=== PATIENT | male | born 1945 | race Caucasian/White ===

== ENCOUNTER → 2016-09-03 | Outpatient (REF) | payer MEDICARE, OTHER | LOC: M LAB REF 18:26 | PROVIDERS: ATTEND Physician Assistant | DX: J02.9 Acute pharyngitis, unspecified (principal) ==

== ENCOUNTER → 2017-02-16 | Outpatient (REF) | payer MEDICARE, OTHER ==
[~2017-02-16] MED LIST: ASPI1TAB PO; CALCTAB29 PO; DIOV160T6 PO; GLUC1CAP10 PO; MULT1TAB10 PO; PROAAER10 INH; PROT1TAB2 PO; TIOT18INH INH
[2017-02-16 17:43] LABS: INR 0.98
== END ==
LOC: M LAB REF 16:34
PROVIDERS: ATTEND Nurse Practitioner Adult Health
DX: Z01.818 Encounter for other preprocedural examination (principal)

== ENCOUNTER → 2017-03-03 | Day surgery (SDC) | payer MEDICARE, OTHER ==
[~2017-03-03] VITALS: Ht 182.9 cm; Wt 100.7 kg
[~2017-03-03] MED LIST changes: +BUPIVACAINE/EPIN 0.25% 30 ML VIAL As Ordered ONE; +ESMOLOL INJ 100MG/10ML VIAL As Ordered ONE; +GLYCOPYRROLATE INJ 0.2 MG/ML 2 ML VIAL As Ordered ONE; +HYDROmorphone HCL 2 MG/ML 1ML VIAL (J1170) As Ordered ONE; +KETOROLAC 60 MG/2 ML VIAL (J1885) As Ordered ONE; +LIDOCAINE 2% INJ 100 MG/5 ML SDV (FOR ANES.) As Ordered ONE; +LR 1,000 ML IV ONE; +LR 1,000 ML IV SCH; +METOCLOPRAMIDE INJ 10MG/2ML VIAL (J2765) As Ordered ONE; +MIDAZOLAM INJ 2 MG/2 ML VIAL (J2250) As Ordered ONE; +NEOSTIGMINE 1MG/ML 5 ML SYRINGE (J2710) As Ordered ONE; +NORCO, ANEXSIA 5/325MG TABLET (HYDROcodone/ACETAMINOPHEN) PO PRN; +ONDANSETRON 4MG/2ML VIAL (J2405) As Ordered ONE; +ONDANSETRON 4MG/2ML VIAL (J2405) IV PRN; +PHENYLephrine HCL 500 MCG/5 ML (100MCG/ML) SYRINGE (J2370) As Ordered ONE; +PROPOFOL 200 MG/20 ML VIAL As Ordered ONE; +ROCURONIUM BROMIDE 50 MG/5 ML VIAL/SYRINGE As Ordered ONE; +SEVOFLURANE INHAL SOLN 250 ML BTL As Ordered ONE; +ceFAZolin SOD 1 GM in D5W MINI-BAG PLUS 50 ML IV ONE; +dexameTHASONE 4 MG/ML 1ML VIAL (J1100) As Ordered ONE; +ePHEDrine SULFATE 25 MG/5 ML(5MG/ML) SYRINGE As Ordered ONE; +fentaNYL 100 MCG/2 ML INJECTION (J3010) IV PRN; +fentaNYL 250 MCG/5 ML INJECTION (J3010) As Ordered ONE
[2017-03-03 21:48] VITALS: BP 142/84
--- NOTE | 2017-03-27 06:42 | RO ---
DATE OF PROCEDURE: 03/03/2017 PREOPERATIVE DIAGNOSIS: Right inguinal hernia. POSTOPERATIVE DIAGNOSIS: Right inguinal hernia. PROCEDURE: Laparoscopic right inguinal hernia repair with 3DMax mesh (TEPP). SURGEON: Dru Sinclair MD [employer]GER: ANESTHESIA: General endotracheal anesthesia. ESTIMATED BLOOD LOSS: Minimal. FLUIDS: Crystalloid. DESCRIPTION OF PROCEDURE: The patient was brought to the operating room, was given general anesthesia. After adequate anesthesia and preoperative antibiotics were given, the patient was prepped and draped in the usual sterile fashion. Next, a periumbilical incision was made with skin knife. Blunt dissection was carried down to fascia. Fascia was incised longitudinally with electrocautery and the rectus muscle was retracted laterally and anteriorly. Finger dissection posterior to the rectus muscle was performed inferior to the umbilicus and under direct visualization the balloon dissector was placed in the preperitoneal space and insufflated under direct visualization. The epigastrics were seen anteriorly as well as the rectus muscle in the peritoneum posteriorly. Stationary balloon was then replaced into the preperitoneal space, insufflated to 15 mm of pressure. Two 5 mm trocars were placed in the infraumbilical site. The right inguinal area was dissected out in the following manner using hook cautery on the loose areolar tissue on the backside of pubis/Bennie's down to the vessels and then starting lateral to the inguinal canal up to the internal ring. Dissection was performed with some blunt dissection as well as the hook cautery on this loose areolar tissue. The peritoneum was dissected off surrounding structures and specifically the cord structures using some blunt dissection, and eventually this was mobilized adequately off the vessels and the vas to where the vas dove deep into the pelvis. Next, the valley between the bladder and the vessels was improved using some blunt dissection and then, a 3DMax mesh was placed in the preperitoneal space, tacked in at the lateral border of Bennie's pubis and on the tail of the mesh. The trocars were all removed under direct visualization. #0 Vicryl was used to close the fascia at the umbilicus and all incisions were closed with #4-0 Vicryl. Steri-Strips and dry sterile dressing was applied. The patient was awakened from his anesthesia, extubated and brought to the recovery room awake, alert, hemodynamically stable. Sponge and needle counts correct times two.
== END | disposition home or self-care (01) ==
LOC: M SDC 09:42
PROVIDERS: ATTEND Surgery
DX: K40.90 Unilateral inguinal hernia, without obstruction or gangrene, not specified as recurrent (principal); I10 Essential (primary) hypertension; K21.9 Gastro-esophageal reflux disease without esophagitis; M12.9 Arthropathy, unspecified; J44.9 Chronic obstructive pulmonary disease, unspecified; R06.83 Snoring; G47.33 Obstructive sleep apnea (adult) (pediatric); E78.00 Pure hypercholesterolemia, unspecified; Z79.899 Other long term (current) drug therapy; Z79.82 Long term (current) use of aspirin; Z86.79 Personal history of other diseases of the circulatory system
CPT/HCPCS: 49650; C1781; J0690; J1100; J1170; J1885; J2250; J2370; J2405; J2710; J2765; J3010

== ENCOUNTER 2017-12-26 10:15 | Day surgery (SDC) | payer MEDICARE, OTHER ==
[2017-12-26] MEDS ORDERED: ceFAZolin 1GM INJ (J0690 PER 500MG) As Ordered (10:49)
[2017-12-26] MEDS: LR 1,000 ML IV (11:35)
[2017-12-26] MEDS ORDERED: ROCURONIUM BROMIDE 50 MG/5 ML VIAL As Ordered (11:44)
[2017-12-26] MEDS ORDERED: MIDAZOLAM INJ 2 MG/2 ML VIAL (J2250) As Ordered (11:44)
[2017-12-26] MEDS ORDERED: fentaNYL 250 MCG/5 ML INJECTION (J3010) As Ordered (11:44)
[2017-12-26] MEDS ORDERED: PROPOFOL 200 MG/20 ML VIAL As Ordered (11:44)
[2017-12-26] MEDS ORDERED: LIDOCAINE 2% INJ 100 MG/5 ML SDV (FOR ANES.) As Ordered (11:44)
[2017-12-26] MEDS ORDERED: dexameTHASONE 4 MG/ML 1ML VIAL (J1100) As Ordered ×2 (12:47)
[2017-12-26] MEDS: ceFAZolin SOD 1 GM in D5W MINI-BAG PLUS 50 ML IV (13:06)
[2017-12-26] MEDS ORDERED: ONDANSETRON 4MG/2ML VIAL (J2405) As Ordered (13:06)
[2017-12-26] MEDS ORDERED: KETOROLAC 60 MG/2 ML VIAL (J1885) As Ordered (13:23)
[2017-12-26] MEDS ORDERED: GLYCOPYRROLATE INJ 0.2 MG/ML 2 ML VIAL As Ordered (13:23)
[2017-12-26] MEDS ORDERED: NEOSTIGMINE 10 MG/10 ML VIAL (J2710) As Ordered (13:23)
[2017-12-26] MEDS: BUPIVACAINE/EPIN 0.5% 30 ML VIAL As Ordered (13:33)
[2017-12-26] MEDS ORDERED: LEVALBUTEROL 1.25 MG/0.5 ML CONCENTRATE NEB As Ordered (13:57)
[2017-12-26] MEDS ORDERED: ONDANSETRON 4MG/2ML VIAL (J2405) IV (14:00)
[2017-12-26] MEDS ORDERED: LR 1,000 ML IV ×2 (14:00)
[2017-12-26] MEDS ORDERED: MORPHINE 4 MG/ML 1ML VIAL/SYRINGE (J2270) IV (14:00)
[2017-12-26] MEDS ORDERED: NORCO, ANEXSIA 5/325MG TABLET (HYDROcodone/ACETAMINOPHEN) PO (14:00)
[2017-12-26] MEDS ORDERED: HYDROmorphone HCL 1 MG/ML SYRINGE (J1170) IV (14:00)
[2017-12-26] MEDS: LEVALBUTEROL 1.25 MG/0.5 ML CONCENTRATE NEB INH (14:05)
[2017-12-26] MEDS: fentaNYL 100 MCG/2 ML INJECTION (J3010) IV (14:11)
[2017-12-26] MEDS: PERCOCET 5MG/325MG TAB PO (14:23)
== END 2017-12-26 17:15 | disposition home or self-care (01) ==
LOC: M SDC 10:15
DX: K42.9 Umbilical hernia without obstruction or gangrene (principal); I10 Essential (primary) hypertension; K21.9 Gastro-esophageal reflux disease without esophagitis; J44.9 Chronic obstructive pulmonary disease, unspecified; Z87.891 Personal history of nicotine dependence; G47.30 Sleep apnea, unspecified; Z79.899 Other long term (current) drug therapy; Z98.61 Coronary angioplasty status
CPT/HCPCS: 49585

== ENCOUNTER → 2020-06-13 | Outpatient (CLI) | payer MEDICARE, OTHER ==
[~2020-06-13] MED LIST changes: -ASPI1TAB PO; +ASPI81TA26 PO; -BUPIVACAINE/EPIN 0.25% 30 ML VIAL As Ordered ONE; +CALC500T44 PO; +DIOV80TA3 PO; -ESMOLOL INJ 100MG/10ML VIAL As Ordered ONE; +FURO20TA2 PO; -GLYCOPYRROLATE INJ 0.2 MG/ML 2 ML VIAL As Ordered ONE; -HYDROmorphone HCL 2 MG/ML 1ML VIAL (J1170) As Ordered ONE; -KETOROLAC 60 MG/2 ML VIAL (J1885) As Ordered ONE; -LIDOCAINE 2% INJ 100 MG/5 ML SDV (FOR ANES.) As Ordered ONE; -LR 1,000 ML IV ONE; -LR 1,000 ML IV SCH; -METOCLOPRAMIDE INJ 10MG/2ML VIAL (J2765) As Ordered ONE; -MIDAZOLAM INJ 2 MG/2 ML VIAL (J2250) As Ordered ONE; +MONT10TA4 PO; +MULTCAP PO; -NEOSTIGMINE 1MG/ML 5 ML SYRINGE (J2710) As Ordered ONE; -NORCO, ANEXSIA 5/325MG TABLET (HYDROcodone/ACETAMINOPHEN) PO PRN; -ONDANSETRON 4MG/2ML VIAL (J2405) As Ordered ONE; -ONDANSETRON 4MG/2ML VIAL (J2405) IV PRN; +PEPC1TAB5 PO; -PHENYLephrine HCL 500 MCG/5 ML (100MCG/ML) SYRINGE (J2370) As Ordered ONE; -PROPOFOL 200 MG/20 ML VIAL As Ordered ONE; -ROCURONIUM BROMIDE 50 MG/5 ML VIAL/SYRINGE As Ordered ONE; -SEVOFLURANE INHAL SOLN 250 ML BTL As Ordered ONE; -ceFAZolin SOD 1 GM in D5W MINI-BAG PLUS 50 ML IV ONE; -dexameTHASONE 4 MG/ML 1ML VIAL (J1100) As Ordered ONE; -ePHEDrine SULFATE 25 MG/5 ML(5MG/ML) SYRINGE As Ordered ONE; -fentaNYL 100 MCG/2 ML INJECTION (J3010) IV PRN; -fentaNYL 250 MCG/5 ML INJECTION (J3010) As Ordered ONE
== END ==
LOC: M LABSMTC 09:11
PROVIDERS: ATTEND Anesthesiology
DX: Z01.812 Encounter for preprocedural laboratory examination (principal); Z20.828 Contact with and (suspected) exposure to other viral communicable diseases
CPT/HCPCS: C9803; U0003

== ENCOUNTER 2020-06-18 08:42 | Day surgery (SDC) | payer MEDICARE, OTHER ==
[~2020-06-18] VITALS: Ht 182.9 cm; Wt 102.1 kg
[~2020-06-18 08:42] MED LIST changes: +NS 1,000 ML IV ONE
[2020-06-18] MEDS ORDERED: propofoL 200 MG/20 ML VIAL As Ordered ONE (10:19)
[2020-06-18] MEDS ORDERED: LIDOCAINE 2% 100MG/5ML SDV (FOR ANES.) As Ordered ONE (10:19)
--- NOTE | 2020-06-18 10:38 | ROOR ---
Patient Name: Lyle Franco Procedure Date: 06/18/2020 10:13 AM Date of : 1945 Age: 74 Room: [facility] Gender: Male Note Status: Finalized Procedure: Colonoscopy Indications: High risk colon cancer surveillance: Personal history of colonic polyps Providers: Xavier BOYKIN MD Referring MD: Yesica Mccarty NP Requesting Provider: Medicines: Monitored Anesthesia Care Complications: No immediate complications. Procedure: Pre-Anesthesia Assessment: - The heart rate, respiratory rate, oxygen saturations, blood pressure, adequacy of pulmonary ventilation, and response to care were monitored throughout the procedure. The Colonoscope was introduced through the anus and advanced to 5 cm into the ileum. The colonoscopy was performed without difficulty. The patient tolerated the procedure well. The quality of the bowel preparation was good. Findings: The perianal and digital rectal examinations were normal. A diminutive polyp was found in the sigmoid colon. The polyp was sessile. Mild sigmoid diverticulosis and small internal hemorrhoids. The exam was otherwise without abnormality on direct and retroflexion views. Impression: - One diminutive polyp in the sigmoid colon. - Mild sigmoid diverticulosis and small internal hemorrhoids. - The examination was otherwise normal on direct and retroflexion views. - No specimens collected. Recommendation: - Repeat colonoscopy in 5 years for surveillance. Xavier Boykin MD Xavier BOYKIN MD 06/18/2020 10:38:14 AM Electronically signed by Xavier BOYKIN MD Number of Addenda: 0 Note Initiated On: 06/18/2020 10:13 AM Estimated Blood Loss: Estimated blood loss: none.
[2020-06-18 11:16] VITALS: BP 123/63
== END 2020-06-18 11:19 | disposition home or self-care (01) ==
LOC: M OPP 08:42
PROVIDERS: ATTEND Internal Medicine Gastroenterology
DX: Z12.11 Encounter for screening for malignant neoplasm of colon (principal); Z86.010 Personal history of colon polyps; D12.5 Benign neoplasm of sigmoid colon; K57.90 Diverticulosis of intestine, part unspecified, without perforation or abscess without bleeding; K64.8 Other hemorrhoids

== ENCOUNTER → 2020-07-22 | Outpatient (REF) | payer MEDICARE, OTHER ==
[~2020-07-22] MED LIST changes: -MONT10TA4 PO; +MONT5TAB2 PO; -NS 1,000 ML IV ONE
[2020-07-22 18:19] LABS: INFLUENZA A AMPLIFICATION NEGATIVE (NEGATIVE); INFLUENZA B AMPLIFICATION NEGATIVE (NEGATIVE)
== END ==
LOC: M LAB REF 16:32
PROVIDERS: ATTEND Nurse Practitioner Adult Health
DX: J06.9 Acute upper respiratory infection, unspecified (principal)
CPT/HCPCS: 87502; U0003

== ENCOUNTER → 2021-10-19 | Outpatient (REF) | payer MEDICARE, OTHER ==
[~2021-10-19] MED LIST changes: -CALC500T44 PO; +MONT10TA97 PO; -MONT5TAB2 PO; +OYST500T92 PO
== END ==
LOC: M LAB REF 16:15
PROVIDERS: ATTEND Nurse Practitioner Adult Health
DX: R10.11 Right upper quadrant pain (principal)

== ENCOUNTER → 2021-10-29 | Outpatient (CLI) | payer MEDICARE, OTHER ==
[~2021-10-29] MED LIST changes: +GASTROGRAFIN SOLUTION 30ML (Q9963) As Ordered ONE; +ISOVUE-370 76% 100ML VIAL As Ordered ONE
== END ==
LOC: M RAD 14:31
PROVIDERS: ATTEND Nurse Practitioner Adult Health
DX: R10.11 Right upper quadrant pain (principal); R63.4 Abnormal weight loss; N20.0 Calculus of kidney; N28.1 Cyst of kidney, acquired; J43.9 Emphysema, unspecified; I70.0 Atherosclerosis of aorta; I25.10 Atherosclerotic heart disease of native coronary artery without angina pectoris; K44.9 Diaphragmatic hernia without obstruction or gangrene; M51.34 Other intervertebral disc degeneration, thoracic region; M51.37 Other intervertebral disc degeneration, lumbosacral region
CPT/HCPCS: 74178; Q9963; Q9967

== ENCOUNTER → 2021-12-11 | Outpatient (CLI) | payer MEDICARE, OTHER ==
[~2021-12-11] MED LIST changes: -GASTROGRAFIN SOLUTION 30ML (Q9963) As Ordered ONE; -ISOVUE-370 76% 100ML VIAL As Ordered ONE; +NO ITAB PO
== END ==
LOC: M LABSMTC 10:27
PROVIDERS: ATTEND Anesthesiology
DX: Z01.812 Encounter for preprocedural laboratory examination (principal); Z20.822 Contact with and (suspected) exposure to COVID-19

== ENCOUNTER 2021-12-16 09:23 | Day surgery (SDC) | payer MEDICARE, OTHER ==
[~2021-12-16] VITALS: Ht 188 cm; Wt 92.1 kg
[~2021-12-16 09:23] MED LIST changes: +NS 1,000 ML IV ONE
[2021-12-16] MEDS ORDERED: fentaNYL 100 MCG/2 ML INJECTION As Ordered ONE (10:42)
[2021-12-16] MEDS ORDERED: propofoL 200 MG/20 ML VIAL As Ordered ONE (11:12)
[2021-12-16] MEDS ORDERED: LIDOCAINE 2% 100MG/5ML SDV (FOR ANES.) As Ordered ONE (11:12)
[2021-12-16 12:08] VITALS: BP 126/75
== END 2021-12-16 12:08 | disposition home or self-care (01) ==
LOC: M OPP 09:23
PROVIDERS: ATTEND Internal Medicine Gastroenterology
DX: K57.30 Diverticulosis of large intestine without perforation or abscess without bleeding (principal); K64.8 Other hemorrhoids; R19.4 Change in bowel habit; R93.3 Abnormal findings on diagnostic imaging of other parts of digestive tract; K44.9 Diaphragmatic hernia without obstruction or gangrene; K31.89 Other diseases of stomach and duodenum; G47.33 Obstructive sleep apnea (adult) (pediatric); N20.0 Calculus of kidney; Z79.82 Long term (current) use of aspirin; Z79.899 Other long term (current) drug therapy; Z99.89 Dependence on other enabling machines and devices; Z87.891 Personal history of nicotine dependence
CPT/HCPCS: 43239; 45378; 88305; J3010

== ENCOUNTER → 2022-06-30 | Outpatient (CLI) | payer MEDICARE, OTHER ==
[~2022-06-30] MED LIST changes: -NS 1,000 ML IV ONE
== END ==
LOC: M RAD 15:27
PROVIDERS: ATTEND Nurse Practitioner Adult Health
DX: S32.030A Wedge compression fracture of third lumbar vertebra, initial encounter for closed fracture (principal); M34.9 Systemic sclerosis, unspecified

== ENCOUNTER → 2022-08-05 | Outpatient (REF) | payer MEDICARE, OTHER ==
[2022-08-05 18:22] LABS: TOTAL PROTEIN 6.1 GM/DL (6.4-8.2)
[2022-08-08 14:13] LABS: ALBUMIN % 62.4 % (55.8-66.1); ALPHA-1-GLOBULIN % 4.8 % (2.9-4.9); ALPHA-2-GLOBULINS % 15.4 % (7.1-11.8); BETA-1-GLOBULINS % 5.7 % (4.7-7.2); BETA-2-GLOBULINS % 4.5 % (3.2-6.5)
[2022-08-08 14:14] LABS: ALBUMIN 3.81 GM/DL (3.29-5.55); ALPHA-1-GLOBULINS 0.29 GM/DL (0.17-0.41); ALPHA-2-GLOBULINS 0.94 GM/DL (0.42-0.99); BETA-1-GLOBULINS 0.35 GM/DL (0.28-0.60); BETA-2-GLOBULINS 0.27 GM/DL (0.19-0.55); GAMMA GLOBULIN % 7.2 % (11.1-18.8); GAMMA GLOBULINS 0.44 GM/DL (0.65-1.58)
== END ==
LOC: M LAB REF 17:02
PROVIDERS: ATTEND Nurse Practitioner Adult Health
DX: C90.00 Multiple myeloma not having achieved remission (principal)

== ENCOUNTER → 2022-08-23 | Outpatient (CLI) | payer MEDICARE, OTHER | LOC: M WHC 14:41 | PROVIDERS: ATTEND Nurse Practitioner Adult Health | DX: M85.89 Other specified disorders of bone density and structure, multiple sites (principal) ==

== ENCOUNTER → 2022-11-23 | Outpatient (REF) | payer MEDICARE, OTHER ==
[~2022-11-23] MED LIST changes: +ACET325C5 PO; +ALBU8.5H; +OMEP1CAP73 PO
== END ==
LOC: M LAB REF 17:04
PROVIDERS: ATTEND Nurse Practitioner Adult Health
DX: E87.1 Hypo-osmolality and hyponatremia (principal); R10.11 Right upper quadrant pain

== ENCOUNTER 2022-12-20 12:43 | Day surgery (SDC) | payer MEDICARE, OTHER ==
[~2022-12-20] VITALS: Ht 177.8 cm; Wt 94.1 kg
[~2022-12-20 12:43] MED LIST changes: +ACET-683 PO; -ALBU8.5H; +ALBU8.5H INH; +ASPI81CH48 PO; +CALC-356 PO; +DOCU100C16 PO; +NS 1,000 ML IV ONE; +OMEP-173 PO; +VALS1TAB66 PO
[2022-12-20] MEDS ORDERED: LIDOCAINE 2% 100MG/5ML SDV (FOR ANES.) As Ordered ONE (14:56)
[2022-12-20] MEDS ORDERED: propofoL 200 MG/20 ML VIAL As Ordered ONE (14:56)
[2022-12-20 15:32] VITALS: BP 145/83
== END 2022-12-20 15:34 | disposition home or self-care (01) ==
LOC: M OPP 12:43
PROVIDERS: ATTEND Internal Medicine Gastroenterology
DX: K22.70 Barrett's esophagus without dysplasia (principal); K31.89 Other diseases of stomach and duodenum; K44.9 Diaphragmatic hernia without obstruction or gangrene; K22.89 Other specified disease of esophagus; I10 Essential (primary) hypertension; K21.9 Gastro-esophageal reflux disease without esophagitis; M19.90 Unspecified osteoarthritis, unspecified site; J44.9 Chronic obstructive pulmonary disease, unspecified; G47.30 Sleep apnea, unspecified; N40.0 Benign prostatic hyperplasia without lower urinary tract symptoms; Z87.891 Personal history of nicotine dependence; Z79.82 Long term (current) use of aspirin; Z79.899 Other long term (current) drug therapy; Z82.49 Family history of ischemic heart disease and other diseases of the circulatory system; Z80.8 Family history of malignant neoplasm of other organs or systems; Z83.6 Family history of other diseases of the respiratory system

== ENCOUNTER → 2023-02-16 | Outpatient (REF) | payer MEDICARE, OTHER ==
[~2023-02-16] MED LIST changes: -NS 1,000 ML IV ONE
[2023-02-16 18:28] LABS: APPEARANCE, URINE CLEAR (CLEAR); BACTERIA, URINE AUTO NEGATIVE (NEGATIVE); BILIRUBIN, URINE AUTO NEGATIVE (NEGATIVE); BLOOD, URINE BLOOD NEGATIVE (NEGATIVE); COLOR, URINE STRAW (YELLOW); GLUCOSE, URINE (UA) AUTO NEGATIVE (NEGATIVE); KETONE, URINE AUTO NEGATIVE (NEGATIVE); LEUKOCYTE ESTERASE, URINE AUTO NEGATIVE (NEGATIVE); NITRITE, URINE AUTO NEGATIVE (NEGATIVE); PROTEIN, URINE AUTO NEGATIVE (NEGATIVE); RBC, URINE AUTO 0 /HPF (0-3); SPECIFIC GRAVITY URINE AUTO 1.008 (1.002-1.035); SQUAMOUS EPITHELIAL CELL UR AU 0 /HPF (0-6); UROBILINOGEN, URINE AUTO 0.2 mg/dL (0.0-2.0); WBC, URINE AUTO 1 /HPF (0-3)
== END ==
LOC: M SMT 16:56
PROVIDERS: ATTEND Specialist
DX: R31.9 Hematuria, unspecified (principal)

== ENCOUNTER → 2023-03-01 | Outpatient (CLI) | payer MEDICARE, OTHER | LOC: M RAD 11:40 | PROVIDERS: ATTEND Specialist | DX: R31.9 Hematuria, unspecified (principal); N13.30 Unspecified hydronephrosis; N28.1 Cyst of kidney, acquired ==

== ENCOUNTER → 2023-07-24 | Outpatient (CLI) | payer MEDICARE, OTHER ==
[~2023-07-24] MED LIST changes: +CYCL-707; +TAMS1CAP17 PO
== END ==
LOC: M RAD 10:56
PROVIDERS: ATTEND Specialist
DX: N13.30 Unspecified hydronephrosis (principal); N28.1 Cyst of kidney, acquired

== ENCOUNTER 2023-10-19 20:17 | Inpatient (IN) | payer MEDICARE, OTHER ==
[~2023-10-19] VITALS: Ht 177.8 cm; Wt 97.1 kg
[~2023-10-19 20:17] MED LIST changes: +ADV500INH INH; -CYCL-707; +CYCL-707 PO; +SYMB16INH INH
[2023-10-19 20:54] LABS: BASO % 0.2 % (0.0-1.0); EOS # 0.4 10^3/uL (0.0-0.5); EOS % 3.2 % (0.0-3.0); HEMATOCRIT 40.3 % (42.0-52.0); HEMOGLOBIN 13.6 g/dl (13.5-17.5); LYMPH # 1.2 10^3/uL (1.5-5.0); LYMPH % 9.1 % (24.0-44.0); MEAN CORPUSCULAR HEMOGLOBIN 31.8 pg (27.0-33.0); MEAN CORPUSCULAR HGB CONC 33.7 g/dl (32.0-36.5); MEAN CORPUSCULAR VOLUME 94.2 fl (80.0-96.0); MONO # 1.3 10^3/uL (0.0-0.8); MONO % 10.5 % (2.0-8.0); NEUTROPHILS # 9.7 10^3/uL (1.5-8.5); NEUTROPHILS % 76.6 % (36.0-66.0); PLATELET COUNT, AUTOMATED 262 10^3/uL (150-450); RED BLOOD COUNT 4.28 10^6/uL (4.30-6.10); WHITE BLOOD COUNT 12.6 10^3/uL (4.0-10.0)
[2023-10-19 21:19] LABS: CK-MB VALUE MASS 5.1 NG/ML (<3.6)
[2023-10-19 21:21] LABS: BLOOD UREA NITROGEN 13 MG/DL (9-23); CALCIUM LEVEL 9.3 MG/DL (8.3-10.6); CARBON DIOXIDE LEVEL 29 MMOL/L (20-31); CHLORIDE LEVEL 98 MMOL/L (98-107); CPK CREATINE PHOSPHOKINASE 127 U/L (46-171); CREATININE FOR GFR 0.73 MG/DL (0.70-1.30); GLOMERULAR FILTRATION RATE > 60.0 (>35); GLUCOSE, FASTING 101 MG/DL (74-106); MB/CK RELATIVE INDEX 4.01 (< OR =4); POTASSIUM SERUM 4.6 MMOL/L (3.5-5.1); SODIUM LEVEL 132 MMOL/L (136-145)
[2023-10-19] MEDS: MAALOX 30 ML SUSP *UDC PO ONE (21:31)
[2023-10-19] MEDS ORDERED: ISOVUE-370 76% 100ML VIAL As Ordered ONE (21:41)
[2023-10-19 21:50] LABS: INR 1.08; PARTIAL THROMBOPLASTIN TIME 25.7 SECONDS (24.8-34.2); PROTHROMBIN TIME 13.7 SECONDS (12.5-14.5)
[2023-10-19 22:25] LABS: MB/CK RELATIVE INDEX 4.31 (< OR =4)
[2023-10-20] MEDS: ONDANSETRON 4MG 2ML VIAL IV ONE (00:06)
[2023-10-20] MEDS: CEFEPIME HCL 2 GM in D5W MINI-BAG PLUS 50 ML IV ONE (00:06)
[2023-10-20] MEDS: MORPHINE 4 MG/ML 1ML VIAL IV PRN (00:10)
[2023-10-20] MEDS: TRANEXAMIC ACID 100 MG/ML 10ML VIAL NEB ONE (00:58)
[2023-10-20] MEDS ORDERED: ACETAMINOPHEN TAB 650MG DOSE (2X325MG) PO PRN (02:20)
[2023-10-20] MEDS ORDERED: MAALOX 30 ML SUSP *UDC PO PRN (02:20)
[2023-10-20] MEDS ORDERED: TUMS500C PO (02:43)
[2023-10-20] MEDS ORDERED: SPIR1AER INH (02:43)
[2023-10-20] MEDS ORDERED: ALBU2.5V10 INH (02:43)
[2023-10-20] MEDS ORDERED: CLOB5CR TOP (02:43)
[2023-10-20] MEDS ORDERED: ADV500INH INH (02:43)
[2023-10-20] MEDS ORDERED: MULT-40 PO (02:43)
[2023-10-20] MEDS ORDERED: HOME MED LIST COMPLETE! XX SCH (02:45)
[2023-10-20 03:46] LABS: PROCALCITONIN <0.04 ng/ml
[2023-10-20] MEDS: NS 1,000 ML IV SCH (04:45)
[2023-10-20] MEDS: DOXYCYCLINE HYCLATE 100MG TABLET PO SCH (05:45)
[2023-10-20 06:37] LABS: HEMATOCRIT 37.1 % (42.0-52.0); HEMOGLOBIN 12.7 g/dl (13.5-17.5); MEAN CORPUSCULAR HEMOGLOBIN 31.7 pg (27.0-33.0); MEAN CORPUSCULAR HGB CONC 34.2 g/dl (32.0-36.5); MEAN CORPUSCULAR VOLUME 92.5 fl (80.0-96.0); PLATELET COUNT, AUTOMATED 244 10^3/uL (150-450); RED BLOOD COUNT 4.01 10^6/uL (4.30-6.10); WHITE BLOOD COUNT 13.5 10^3/uL (4.0-10.0)
[2023-10-20 06:57] LABS: ALBUMIN 3.2 G/DL (3.2-5.2); ALKALINE PHOSPHATASE 72 U/L (46-116); ALT/SGPT 21 U/L (7.0-40); AST/SGOT 14 U/L (<34); BILIRUBIN,TOTAL 1.2 MG/DL (0.3-1.2); BLOOD UREA NITROGEN 13 MG/DL (9-23); CALCIUM LEVEL 8.7 MG/DL (8.3-10.6); CARBON DIOXIDE LEVEL 27 MMOL/L (20-31); CHLORIDE LEVEL 102 MMOL/L (98-107); CREATININE FOR GFR 0.59 MG/DL (0.70-1.30); GLOMERULAR FILTRATION RATE > 60.0 (>35); GLUCOSE, FASTING 120 MG/DL (74-106); MAGNESIUM LEVEL 1.7 MG/DL (1.8-2.4); POTASSIUM SERUM 4.6 MMOL/L (3.5-5.1); SODIUM LEVEL 132 MMOL/L (136-145); TOTAL PROTEIN 5.3 G/DL (5.7-8.2)
[2023-10-20] MEDS: TRANEXAMIC ACID 100 MG/ML 10ML VIAL NEB SCH (08:41)
[2023-10-20 08:44] VITALS: O2SAT 96
[2023-10-20] MEDS: TAMSULOSIN 0.4 MG CAP PO SCH (09:00)
[2023-10-20] MEDS: DOCUSATE SODIUM 100MG CAPSULE PO SCH (09:00)
[2023-10-20] MEDS: CEFEPIME HCL 2 GM in D5W MINI-BAG PLUS 50 ML IV SCH (09:04)
[2023-10-20] MEDS ORDERED: E-Z-GAS II EFFERVESCENT PACKET (SODIUM BICARB./CITRIC ACID/SIMETHICONE) As Ordered ONE (09:06)
[2023-10-20] MEDS ORDERED: E-Z-HD 98% w/w 340GM SUSP BTL As Ordered ONE (09:06)
[2023-10-20] MEDS ORDERED: E-Z-PAQUE 96% w/w SUSP 176GM BTL As Ordered ONE (09:06)
[2023-10-20] MEDS: PANTOPRAZOLE 40MG VIAL IV SCH (12:35)
[2023-10-20] MEDS: MAG SULF 1GM/100ML (MAG RUN) 1 GM in IV 1 EA IV ONE (12:38)
[2023-10-20 13:50] VITALS: O2SAT 95
[2023-10-20] MEDS: TIOTROPIUM INHALER/CAPSULE (SPIRIVA) INH SCH (14:24)
[2023-10-20] MEDS: ADVAIR HFA 230/21MCG INHALER INH SCH (14:57)
[2023-10-20] MEDS: FUROSEMIDE 100MG/10ML VIAL IV ONE (15:22)
[2023-10-20 16:05] VITALS: BP 135/72; TEMP 97.5; O2SAT 96
[2023-10-20 20:02] VITALS: BP 133/72; TEMP 97.5; O2SAT 95
[2023-10-21 05:37] VITALS: TEMP 97.2; O2SAT 96
[2023-10-21 06:11] VITALS: BP 100/63
[2023-10-21 06:11] LABS: BASO % 0.3 % (0.0-1.0); EOS # 0.3 10^3/uL (0.0-0.5); EOS % 2.4 % (0.0-3.0); HEMATOCRIT 36.2 % (42.0-52.0); HEMOGLOBIN 12.3 g/dl (13.5-17.5); LYMPH # 1.1 10^3/uL (1.5-5.0); MEAN CORPUSCULAR HEMOGLOBIN 31.8 pg (27.0-33.0); MEAN CORPUSCULAR VOLUME 93.5 fl (80.0-96.0); MONO # 1.3 10^3/uL (0.0-0.8); NEUTROPHILS % 74.8 % (36.0-66.0); PLATELET COUNT, AUTOMATED 243 10^3/uL (150-450); RED BLOOD COUNT 3.87 10^6/uL (4.30-6.10); WHITE BLOOD COUNT 10.7 10^3/uL (4.0-10.0)
[2023-10-21 06:30] LABS: BLOOD UREA NITROGEN 19 MG/DL (9-23); CALCIUM LEVEL 8.6 MG/DL (8.3-10.6); CARBON DIOXIDE LEVEL 28 MMOL/L (20-31); CHLORIDE LEVEL 100 MMOL/L (98-107); CREATININE FOR GFR 0.91 MG/DL (0.70-1.30); GLOMERULAR FILTRATION RATE > 60.0 (>35); GLUCOSE, FASTING 110 MG/DL (74-106); POTASSIUM SERUM 4.3 MMOL/L (3.5-5.1); SODIUM LEVEL 132 MMOL/L (136-145)
[2023-10-21] MEDS: MOM 30ML SUSPENSION UDC PO PRN (07:46)
[2023-10-21 14:00] VITALS: BP 120/70; TEMP 97.9; O2SAT 96
[2023-10-21] MEDS: ALBUTEROL SULFATE 2.5MG/0.5ML INH NEB SOLN NEB PRN (20:08)
[2023-10-21 21:06] VITALS: BP 120/71; TEMP 97.7; O2SAT 95
[2023-10-21] MEDS: MONTELUKAST 10 MG TAB PO SCH (21:22)
[2023-10-22 05:33] VITALS: BP 151/90; TEMP 97.7; O2SAT 100
[2023-10-22 06:43] LABS: BASO % 0.3 % (0.0-1.0); EOS # 0.6 10^3/uL (0.0-0.5); EOS % 5.7 % (0.0-3.0); HEMATOCRIT 35.4 % (42.0-52.0); HEMOGLOBIN 11.9 g/dl (13.5-17.5); LYMPH # 0.9 10^3/uL (1.5-5.0); LYMPH % 8.8 % (24.0-44.0); MEAN CORPUSCULAR HEMOGLOBIN 31.6 pg (27.0-33.0); MEAN CORPUSCULAR HGB CONC 33.6 g/dl (32.0-36.5); MEAN CORPUSCULAR VOLUME 93.9 fl (80.0-96.0); MONO # 1.1 10^3/uL (0.0-0.8); MONO % 10.8 % (2.0-8.0); NEUTROPHILS # 7.7 10^3/uL (1.5-8.5); NEUTROPHILS % 73.9 % (36.0-66.0); PLATELET COUNT, AUTOMATED 234 10^3/uL (150-450); RED BLOOD COUNT 3.77 10^6/uL (4.30-6.10); WHITE BLOOD COUNT 10.4 10^3/uL (4.0-10.0)
[2023-10-22 07:18] LABS: BLOOD UREA NITROGEN 19 MG/DL (9-23); CALCIUM LEVEL 8.1 MG/DL (8.3-10.6); CARBON DIOXIDE LEVEL 26 MMOL/L (20-31); CHLORIDE LEVEL 101 MMOL/L (98-107); CREATININE FOR GFR 0.68 MG/DL (0.70-1.30); GLOMERULAR FILTRATION RATE > 60.0 (>35); GLUCOSE, FASTING 99 MG/DL (74-106); POTASSIUM SERUM 4.4 MMOL/L (3.5-5.1); SODIUM LEVEL 131 MMOL/L (136-145)
[2023-10-22] MEDS: FUROSEMIDE 100MG/10ML VIAL IV ONE (10:29)
[2023-10-22 14:00] VITALS: BP 139/83; TEMP 96.4; O2SAT 95
[2023-10-22] MEDS: FUROSEMIDE 40MG/4ML VIAL IV SCH (16:26)
[2023-10-22 20:44] VITALS: BP 107/73; TEMP 98.2; O2SAT 94
[2023-10-22] MEDS ORDERED: RAMELTEON 8 MG TAB (ROZEREM) PO PRN (20:50)
[2023-10-22] MEDS: BENZONATATE 100MG CAPSULE PO PRN (21:07)
[2023-10-23] MEDS: MAALOX 30 ML SUSP *UDC PO PRN (00:14)
[2023-10-23 04:50] VITALS: BP 116/75; TEMP 97.7; O2SAT 96
[2023-10-23 06:12] LABS: BASO # 0.1 10^3/uL (0.0-0.2); BASO % 0.5 % (0.0-1.0); EOS # 0.8 10^3/uL (0.0-0.5); EOS % 7.9 % (0.0-3.0); HEMATOCRIT 36.1 % (42.0-52.0); LYMPH # 0.9 10^3/uL (1.5-5.0); LYMPH % 9.9 % (24.0-44.0); MEAN CORPUSCULAR HEMOGLOBIN 31.4 pg (27.0-33.0); MEAN CORPUSCULAR HGB CONC 33.2 g/dl (32.0-36.5); MEAN CORPUSCULAR VOLUME 94.5 fl (80.0-96.0); MONO # 1.2 10^3/uL (0.0-0.8); MONO % 12.3 % (2.0-8.0); NEUTROPHILS # 6.6 10^3/uL (1.5-8.5); NEUTROPHILS % 68.8 % (36.0-66.0); PLATELET COUNT, AUTOMATED 254 10^3/uL (150-450); RED BLOOD COUNT 3.82 10^6/uL (4.30-6.10); WHITE BLOOD COUNT 9.5 10^3/uL (4.0-10.0)
[2023-10-23 06:44] LABS: BLOOD UREA NITROGEN 16 MG/DL (9-23); CALCIUM LEVEL 8.2 MG/DL (8.3-10.6); CARBON DIOXIDE LEVEL 27 MMOL/L (20-31); CHLORIDE LEVEL 100 MMOL/L (98-107); CREATININE FOR GFR 0.74 MG/DL (0.70-1.30); GLOMERULAR FILTRATION RATE > 60.0 (>35); GLUCOSE, FASTING 95 MG/DL (74-106); SODIUM LEVEL 133 MMOL/L (136-145)
[2023-10-23] MEDS ORDERED: VARIBAR PUDDING 40% w/v 230ML TUBE As Ordered ONE (10:45)
[2023-10-23] MEDS ORDERED: VARIBAR NECTAR 40% w/v 240ML SUSP BTL As Ordered ONE (10:46)
[2023-10-23] MEDS ORDERED: BARIUM SULFATE 700 MG TABLET (E-Z-DISK) As Ordered ONE (10:46)
[2023-10-23 14:00] VITALS: BP 119/76; TEMP 97.7; O2SAT 93
[2023-10-23] MEDS ORDERED: DOXY-444 PO (16:23)
[2023-10-23] MEDS ORDERED: TORS20TA2 PO (16:23)
[2023-10-23] MEDS ORDERED: CEFD300CAP PO (16:23)
[2023-10-23] MEDS ORDERED: PROBCAP14 PO ×2 (16:23→17:11)
[2023-10-23] MEDS ORDERED: VALS40TA9 PO (16:23)
[2023-10-23] MEDS ORDERED: OMEP40CA4 PO (16:23)
[2023-10-23] MEDS: CEFDINIR 300 MG CAP (OMNICEF) PO STA (17:27)
[2023-10-23] MEDS: DOXYCYCLINE HYCLATE 100MG TABLET PO STA (17:27)
== END 2023-10-23 17:44 | disposition home or self-care (01) | DRG 177 ==
LOC: M ED 20:17 → M ED INP 10-20 02:17 → M MSPAV 10-20 16:14
PROVIDERS: ADMIT Internal Medicine; ATTEND Internal Medicine Nephrology
DX: J15.69 Pneumonia due to other Gram-negative bacteria (principal); I50.33 Acute on chronic diastolic (congestive) heart failure; R04.2 Hemoptysis; J44.0 Chronic obstructive pulmonary disease with (acute) lower respiratory infection; I11.0 Hypertensive heart disease with heart failure; K21.9 Gastro-esophageal reflux disease without esophagitis; K22.70 Barrett's esophagus without dysplasia; E78.5 Hyperlipidemia, unspecified; I25.10 Atherosclerotic heart disease of native coronary artery without angina pectoris; K44.9 Diaphragmatic hernia without obstruction or gangrene; J44.9 Chronic obstructive pulmonary disease, unspecified; G47.33 Obstructive sleep apnea (adult) (pediatric); E66.9 Obesity, unspecified; Z79.899 Other long term (current) drug therapy; Z87.891 Personal history of nicotine dependence; K57.90 Diverticulosis of intestine, part unspecified, without perforation or abscess without bleeding; K64.8 Other hemorrhoids; N40.0 Benign prostatic hyperplasia without lower urinary tract symptoms; Z95.2 Presence of prosthetic heart valve; I48.0 Paroxysmal atrial fibrillation

== ENCOUNTER 2024-02-28 10:17 | Outpatient (CLI) | payer MEDICARE, OTHER ==
[~2024-02-28] VITALS: Ht 177.8 cm; Wt 99.5 kg
[~2024-02-28 10:17] MED LIST changes: +ALBU2.5V10 INH; +ALBUTEROL SULFATE 2.5MG/0.5ML INH NEB SOLN INH PRN; +CEFD300CAP PO; +CLOB5CR TOP; +DOXY-440 PO; +EPINEPHrine INJ 1 MG/ML 1ML AMP IM PRN; +MULT-40 PO; +OMEP40CA4 PO; +PROBCAP14 PO; +SPIR1AER INH; +TORS20TA2 PO; +TUMS500C PO; +VALS40TA9 PO; +diphenhydrAMINE 50MG/ML VIAL IV PRN; +methylPREDNISolone 125MG 2ML VIAL IV PRN
[2024-02-28 10:25] VITALS: BP 125/68; O2SAT 96
[2024-02-28] MEDS ORDERED: NS 1,000 ML IV SCH (10:30)
[2024-02-28] MEDS: methylPREDNISolone 40MG 1ML VIAL IV ONE (10:42)
[2024-02-28] MEDS: ACETAMINOPHEN TAB 650MG DOSE (2X325MG) PO ONE (10:43)
[2024-02-28] MEDS: diphenhydrAMINE 25MG CAP PO ONE (10:43)
[2024-02-28] MEDS: IMMUNE GLOBULIN 10% 40 GM in IV 1 EA IV ONE (11:17)
[2024-02-28] MEDS: IMMUNE GLOBULIN 10% 10 GM in IV 1 EA IV ONE (11:18)
[2024-02-28 11:45] VITALS: BP 113/62; O2SAT 97
[2024-02-28 12:15] VITALS: BP 134/76; O2SAT 96
[2024-02-28 12:45] VITALS: BP 135/75; O2SAT 68
[2024-02-28 13:45] VITALS: BP 139/84; O2SAT 99
[2024-02-28 14:45] VITALS: BP 136/73; O2SAT 95
== END 2024-02-28 14:45 ==
LOC: M INFU 10:17
PROVIDERS: ATTEND Specialist
DX: D80.1 Nonfamilial hypogammaglobulinemia (principal)
CPT/HCPCS: 96365; 96366; 96375; J1459; J2919

== ENCOUNTER 2024-03-27 10:10 | Outpatient (CLI) | payer MEDICARE, OTHER ==
[~2024-03-27] VITALS: Ht 177.8 cm; Wt 95.5 kg
[~2024-03-27 10:10] MED LIST changes: +NS 1,000 ML IV SCH
[2024-03-27 10:15] VITALS: BP 123/74; O2SAT 97
[2024-03-27] MEDS: methylPREDNISolone 125MG 2ML VIAL IV ONE (10:28)
[2024-03-27] MEDS: ACETAMINOPHEN TAB 650MG DOSE (2X325MG) PO ONE (10:28)
[2024-03-27] MEDS: diphenhydrAMINE 25MG CAP PO ONE (10:28)
[2024-03-27] MEDS: IMMUNE GLOBULIN 10% 40 GM in IV 1 EA IV ONE (10:39)
[2024-03-27] MEDS: IMMUNE GLOBULIN 10% 10 GM in IV 1 EA IV ONE (10:40)
[2024-03-27 11:00] VITALS: BP 131/65; O2SAT 96
[2024-03-27 11:30] VITALS: BP 128/67; O2SAT 97
[2024-03-27 12:00] VITALS: BP 129/74; O2SAT 97
[2024-03-27 14:05] VITALS: BP 138/75; O2SAT 98
== END 2024-03-27 14:05 ==
LOC: M INFU 10:10
PROVIDERS: ATTEND Specialist
DX: D80.1 Nonfamilial hypogammaglobulinemia (principal)
CPT/HCPCS: 96365; 96366; 96375; J1459; J2919

== ENCOUNTER 2024-04-24 08:20 | Outpatient (CLI) | payer MEDICARE, OTHER ==
[~2024-04-24] VITALS: Ht 177.8 cm; Wt 93.2 kg
[2024-04-24 08:20] VITALS: BP 117/62; O2SAT 95
[~2024-04-24 08:20] MED LIST changes: -ALBUTEROL SULFATE 2.5MG/0.5ML INH NEB SOLN INH PRN; -EPINEPHrine INJ 1 MG/ML 1ML AMP IM PRN; -NS 1,000 ML IV SCH; -diphenhydrAMINE 50MG/ML VIAL IV PRN; -methylPREDNISolone 125MG 2ML VIAL IV PRN
[2024-04-24] MEDS ORDERED: NS 1,000 ML IV SCH (08:30)
[2024-04-24] MEDS ORDERED: EPINEPHrine INJ 1 MG/ML 1ML AMP IM PRN (08:30)
[2024-04-24] MEDS ORDERED: ALBUTEROL SULFATE 2.5MG/0.5ML INH NEB SOLN INH PRN (08:30)
[2024-04-24] MEDS ORDERED: methylPREDNISolone 125MG 2ML VIAL IV ONE (08:30)
[2024-04-24] MEDS ORDERED: methylPREDNISolone 125MG 2ML VIAL IV PRN (08:30)
[2024-04-24] MEDS ORDERED: diphenhydrAMINE 50MG/ML VIAL IV PRN (08:30)
[2024-04-24] MEDS: ACETAMINOPHEN TAB 650MG DOSE (2X325MG) PO ONE (08:51)
[2024-04-24] MEDS: diphenhydrAMINE 25MG CAP PO ONE (08:51)
[2024-04-24] MEDS: IMMUNE GLOBULIN 10% 40 GM in IV 1 EA IV ONE (09:00)
[2024-04-24] MEDS: IMMUNE GLOBULIN 10% 10 GM in IV 1 EA IV ONE (09:01)
[2024-04-24 10:36] VITALS: BP 121/69; O2SAT 97
[2024-04-24 12:45] VITALS: BP 130/74; O2SAT 97
== END 2024-04-24 12:50 ==
LOC: M INFU 08:20
PROVIDERS: ATTEND Specialist
DX: D80.1 Nonfamilial hypogammaglobulinemia (principal)
CPT/HCPCS: 96365; 96366; J1459

== ENCOUNTER → 2024-05-20 | Outpatient (CLI) | payer MEDICARE, OTHER | LOC: M PLAIMG 10:44 | PROVIDERS: ATTEND Internal Medicine Critical Care Medicine | DX: R91.8 Other nonspecific abnormal finding of lung field (principal); I70.0 Atherosclerosis of aorta; J44.9 Chronic obstructive pulmonary disease, unspecified; J98.11 Atelectasis; K44.9 Diaphragmatic hernia without obstruction or gangrene; N28.1 Cyst of kidney, acquired ==

== ENCOUNTER 2024-05-22 08:30 | Outpatient (CLI) | payer MEDICARE, OTHER ==
[~2024-05-22] VITALS: Ht 177.8 cm; Wt 93.6 kg
[2024-05-22 08:30] VITALS: BP 121/65; O2SAT 96
[~2024-05-22 08:30] MED LIST changes: +ALBUTEROL SULFATE 2.5MG/0.5ML INH NEB SOLN INH PRN; +EPINEPHrine INJ 1 MG/ML 1ML AMP IM PRN; +NS 1,000 ML IV SCH; +diphenhydrAMINE 50MG/ML VIAL IV PRN; +methylPREDNISolone 125MG 2ML VIAL IV PRN
[2024-05-22] MEDS: ACETAMINOPHEN 650MG PO PRIOR TO INFUSION PO ONE (08:44)
[2024-05-22] MEDS: methylPREDNISolone 125MG 2ML VIAL IV ONE (08:44)
[2024-05-22] MEDS: diphenhydrAMINE 25MG PO PRIOR TO INFUSION PO ONE (08:44)
[2024-05-22] MEDS: IMMUNE GLOBULIN 10% 40 GM in IV 1 EA IV ONE (08:46)
[2024-05-22] MEDS: IMMUNE GLOBULIN 10% 10 GM in IV 1 EA IV ONE (08:47)
[2024-05-22 09:30] VITALS: BP 99/55; O2SAT 96
[2024-05-22 10:00] VITALS: BP 111/62; O2SAT 97
[2024-05-22 10:30] VITALS: BP 100/64; O2SAT 98
[2024-05-22 12:20] VITALS: BP 150/78; O2SAT 97
== END 2024-05-22 12:25 ==
LOC: M INFU 08:30
PROVIDERS: ATTEND Specialist
DX: D80.1 Nonfamilial hypogammaglobulinemia (principal)
CPT/HCPCS: 96365; 96366; 96367; J1459; J2919

== ENCOUNTER 2024-06-19 09:25 | Outpatient (CLI) | payer MEDICARE, OTHER ==
[~2024-06-19] VITALS: Ht 177.8 cm; Wt 95.6 kg
[2024-06-19 09:25] VITALS: BP 127/66; O2SAT 96
[2024-06-19] MEDS: methylPREDNISolone 125MG 2ML VIAL IV ONE (09:30)
[2024-06-19] MEDS: diphenhydrAMINE 25MG PO PRIOR TO INFUSION PO ONE (09:31)
[2024-06-19] MEDS: ACETAMINOPHEN 650MG PO PRIOR TO INFUSION PO ONE (09:31)
[2024-06-19] MEDS: IMMUNE GLOBULIN 10% 10 GM in IV 1 EA IV ONE (09:53)
[2024-06-19] MEDS: IMMUNE GLOBULIN 10% 40 GM in IV 1 EA IV ONE (09:54)
[2024-06-19 10:30] VITALS: BP 110/56; O2SAT 97
[2024-06-19 11:00] VITALS: BP 119/64; O2SAT 97
[2024-06-19 11:30] VITALS: BP 121/71; O2SAT 96
[2024-06-19 13:08] VITALS: BP 134/72; O2SAT 96
== END 2024-06-19 13:10 ==
LOC: M INFU 09:25
PROVIDERS: ATTEND Specialist
DX: D80.1 Nonfamilial hypogammaglobulinemia (principal)
CPT/HCPCS: 96365; 96366; 96375; J1459; J2919

== ENCOUNTER 2024-07-17 08:30 | Outpatient (CLI) | payer MEDICARE, OTHER ==
[~2024-07-17] VITALS: Ht 177.8 cm; Wt 93.0 kg
[2024-07-17 08:30] VITALS: BP 127/64; O2SAT 96
[2024-07-17] MEDS: ACETAMINOPHEN 650MG PO PRIOR TO INFUSION PO ONE (08:45)
[2024-07-17] MEDS: diphenhydrAMINE 25MG PO PRIOR TO INFUSION PO ONE (08:46)
[2024-07-17] MEDS: methylPREDNISolone 40MG 1ML VIAL IV ONE (08:46)
[2024-07-17] MEDS: IMMUNE GLOBULIN 10% 40 GM in IV 1 EA IV ONE (08:54)
[2024-07-17 09:30] VITALS: BP 112/56; O2SAT 97
[2024-07-17 10:00] VITALS: BP 119/61; O2SAT 98
[2024-07-17 10:30] VITALS: BP 119/68; O2SAT 98
[2024-07-17 11:30] VITALS: BP 120/70; O2SAT 97
[2024-07-17] MEDS: IMMUNE GLOBULIN 10% 10 GM in IV 1 EA IV ONE (11:53)
[2024-07-17 12:20] VITALS: BP 100/58; O2SAT 95
== END 2024-07-17 12:30 ==
LOC: M INFU 08:30
PROVIDERS: ATTEND Specialist
DX: D80.1 Nonfamilial hypogammaglobulinemia (principal)
CPT/HCPCS: 96365; 96366; 96375; J1459; J2919

== ENCOUNTER 2024-08-15 07:57 | Outpatient (CLI) | payer MEDICARE, OTHER ==
[~2024-08-15] VITALS: Ht 177.8 cm; Wt 95.5 kg
[~2024-08-15 07:57] MED LIST changes: +NS (Normal Saline) 0.9% 1,000 ML IV SCH; -NS 1,000 ML IV SCH
[2024-08-15] MEDS: ACETAMINOPHEN 325 MG TAB PO ONE (08:17)
[2024-08-15] MEDS: diphenhydrAMINE 25MG PO PRIOR TO INFUSION PO ONE (08:17)
[2024-08-15] MEDS: IMMUNE GLOBULIN 10% 10 GM in IV 1 EA IV ONE (08:19)
[2024-08-15] MEDS: IMMUNE GLOBULIN 10% 40 GM in IV 1 EA IV ONE (08:20)
[2024-08-15] MEDS: methylPREDNISolone 40MG 1ML VIAL IV ONE (08:22)
[2024-08-15 08:30] VITALS: BP 122/76; O2SAT 96
[2024-08-15 09:00] VITALS: BP 123/72; O2SAT 97
[2024-08-15 09:30] VITALS: BP 118/70; O2SAT 98
[2024-08-15 10:00] VITALS: BP 120/79; O2SAT 97
[2024-08-15 11:00] VITALS: BP 132/68; O2SAT 96
[2024-08-15 12:00] VITALS: BP 137/74; O2SAT 99
== END 2024-08-15 11:59 | disposition home or self-care (01) ==
LOC: M INFU 07:57
PROVIDERS: ATTEND Specialist
DX: D80.1 Nonfamilial hypogammaglobulinemia (principal)
CPT/HCPCS: 96365; 96366; 96375; J1459; J2919

== ENCOUNTER 2024-09-12 08:04 | Outpatient (CLI) | payer MEDICARE, OTHER ==
[~2024-09-12 08:04] MED LIST changes: +ACETAMINOPHEN 650MG PO PRIOR TO INFUSION PO ONE; -ADV500INH INH; +ADVA1AER10 INH; +IMMUNE GLOBULIN 10% 10 GM in IV 1 EA IV ONE; +IMMUNE GLOBULIN 10% 40 GM in IV 1 EA IV ONE; +diphenhydrAMINE 25MG PO PRIOR TO INFUSION PO ONE
[2024-09-12 08:30] VITALS: BP 122/66; O2SAT 95
[2024-09-12 08:52] LABS: BASO % 0.4 % (0.0-1.0); EOS # 0.1 10^3/uL (0.0-0.5); EOS % 1.3 % (0.0-3.0); HEMOGLOBIN 13.8 g/dl (13.5-17.5); LYMPH # 0.9 10^3/uL (1.5-5.0); LYMPH % 11.9 % (24.0-44.0); MEAN CORPUSCULAR HEMOGLOBIN 31.2 pg (27.0-33.0); MEAN CORPUSCULAR HGB CONC 32.9 g/dl (32.0-36.5); MONO # 0.9 10^3/uL (0.0-0.8); MONO % 11.3 % (2.0-8.0); NEUTROPHILS # 5.7 10^3/uL (1.5-8.5); NEUTROPHILS % 74.8 % (36.0-66.0); PLATELET COUNT, AUTOMATED 218 10^3/uL (150-450); RED BLOOD COUNT 4.42 10^6/uL (4.30-6.10); WHITE BLOOD COUNT 7.6 10^3/uL (4.0-10.0)
[2024-09-12 09:18] LABS: IMMUNOGLOBULIN A 123.7 MG/DL (40-350); IMMUNOGLOBULIN G 1015 MG/DL (650-1600)
[2024-09-12 09:19] LABS: ALBUMIN 3.5 G/DL (3.2-5.2); ALKALINE PHOSPHATASE 78 U/L (40-129); ALT/SGPT 26 U/L (7.0-40); AST/SGOT 24 U/L (<34); BILIRUBIN,TOTAL 0.5 MG/DL (0.3-1.2); BLOOD UREA NITROGEN 20 MG/DL (9-23); CALCIUM LEVEL 9.1 MG/DL (8.3-10.6); CARBON DIOXIDE LEVEL 33 MMOL/L (20-31); CHLORIDE LEVEL 103 MMOL/L (98-107); CREATININE FOR GFR 0.89 MG/DL (0.70-1.30); GLOMERULAR FILTRATION RATE > 60.0 (>35); GLUCOSE, FASTING 59 MG/DL (74-106); POTASSIUM SERUM 4.1 MMOL/L (3.5-5.1); SODIUM LEVEL 140 MMOL/L (136-145); TOTAL PROTEIN 6.7 G/DL (5.7-8.2)
[2024-09-12 09:29] LABS: IMMUNOGLOBULIN M 24.7 MG/DL (50-300)
== END 2024-09-12 09:40 ==
LOC: M INFU 08:04
PROVIDERS: ATTEND Specialist
DX: D80.1 Nonfamilial hypogammaglobulinemia (principal)

== ENCOUNTER → 2024-12-05 | Outpatient (CLI) | payer MEDICARE, OTHER ==
[~2024-12-05] MED LIST changes: -ACETAMINOPHEN 650MG PO PRIOR TO INFUSION PO ONE; -ALBUTEROL SULFATE 2.5MG/0.5ML INH NEB SOLN INH PRN; -EPINEPHrine INJ 1 MG/ML 1ML AMP IM PRN; -IMMUNE GLOBULIN 10% 10 GM in IV 1 EA IV ONE; -IMMUNE GLOBULIN 10% 40 GM in IV 1 EA IV ONE; +META0.52 PO; +MIRA3350 PO; -NS (Normal Saline) 0.9% 1,000 ML IV SCH; +PROA1AER2 INH; -diphenhydrAMINE 25MG PO PRIOR TO INFUSION PO ONE; -diphenhydrAMINE 50MG/ML VIAL IV PRN; -methylPREDNISolone 125MG 2ML VIAL IV PRN
== END ==
LOC: M INFU 08:13
PROVIDERS: ATTEND Specialist
DX: D80.1 Nonfamilial hypogammaglobulinemia (principal); Z53.9 Procedure and treatment not carried out, unspecified reason

== ENCOUNTER 2025-01-03 08:36 | Outpatient (CLI) | payer MEDICARE, OTHER ==
[2025-01-03 09:16] VITALS: BP 143/69; O2SAT 93
== END 2025-01-03 09:50 ==
LOC: M INFU 08:36
PROVIDERS: ATTEND Specialist
DX: D80.1 Nonfamilial hypogammaglobulinemia (principal)

== ENCOUNTER → 2025-04-22 | Outpatient (REF) | payer MEDICARE, OTHER | LOC: M LAB REF 15:16 | PROVIDERS: ATTEND Physician Assistant Medical | DX: R10.30 Lower abdominal pain, unspecified (principal); R63.4 Abnormal weight loss ==

== ENCOUNTER → 2025-05-02 | Outpatient (CLI) | payer MEDICARE, OTHER ==
[~2025-05-02] MED LIST changes: +ISOVUE-370 76% 100 ML VIAL As Ordered ONE
== END ==
LOC: M RAD 15:24
PROVIDERS: ATTEND Physician Assistant Medical
DX: R10.30 Lower abdominal pain, unspecified (principal); R63.4 Abnormal weight loss; K44.9 Diaphragmatic hernia without obstruction or gangrene; N20.0 Calculus of kidney; N28.1 Cyst of kidney, acquired; N40.0 Benign prostatic hyperplasia without lower urinary tract symptoms
CPT/HCPCS: 74177; Q9967